=== PATIENT | female | born 1995 | race Asian ===

== ENCOUNTER 2018-11-25 16:43 | Emergency (ER) | payer OTHER ==
[2018-11-25 16:49] VITALS: BP 117/75; PULSE 110; TEMP 98.5; BMI 18.6
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
--- NOTE | 2018-11-26 13:15 | EKG ---
Test Reason : Blood Pressure : / mmHG Vent. Rate : 079 BPM Atrial Rate : 079 BPM P-R Int : 140 ms QRS Dur : 082 ms QT Int : 374 ms P-R-T Axes : 085 090 068 degrees QTc Int : 428 ms NORMAL SINUS RHYTHM RIGHTWARD AXIS BORDERLINE ECG NO PREVIOUS ECGS AVAILABLE Confirmed by DAMON CARDONA MD ([id number]) on 11/26/2018 1:15:34 PM Referred By: Confirmed By:DAMON CARDONA MD
== END 2018-11-25 18:47 | disposition home or self-care (01) ==
LOC: JERFT 16:43
DX: S20.219A Contusion of unspecified front wall of thorax, initial encounter (principal); V49.59XA Passenger injured in collision with other motor vehicles in traffic accident, initial encounter; Y92.488 Other paved roadways as the place of occurrence of the external cause; Y93.89 Activity, other specified; Y99.8 Other external cause status; Z79.3 Long term (current) use of hormonal contraceptives
CPT/HCPCS: 71046-TC-FY; 93005; 93010; 99281-25